=== PATIENT | female | born 1965 | race Caucasian/White ===

== ENCOUNTER 2021-08-30 11:20 | Inpatient (IN) | payer BC, SELFPAY ==
[2021-08-30] VITALS (10 sets, daily range): BP systolic 114–137; BP diastolic 50–82; PULSE 81–106; RESP 12–27; TEMP 36.4–37.1; O2SAT 87–99; BMI 34.7; BMI 29.5
--- NOTE | 2021-08-30 12:56 | EKG12_ITS ---
Test Reason : Blood Pressure : / mmHG Vent. Rate : 081 BPM Atrial Rate : 081 BPM P-R Int : 142 ms QRS Dur : 080 ms QT Int : 392 ms P-R-T Axes : 007 -49 022 degrees QTc Int : 455 ms Normal sinus rhythm Left axis deviation Nonspecific ST abnormality Abnormal ECG Confirmed by PERNELL CAIN, SHIRA ([id number]), proposal editor CHANTAL VEGA ([id number]) on 09/04/2021 10:39:32 AM Referred By: YAMILKA Confirmed By:PATRICIA GIMENEZ MD
--- NOTE | 2021-08-30 12:58 | ED.VIS.DYS ---
HPI History of Present Illness Chief Complaint: Shortness of Breath Narrative Narrative: 56-year-old female presenting with a cough, shortness of breath with exertion, nausea, vomiting, diarrhea x2 weeks. She states she gets tested for COVID-19 twice weekly and has not have a positive Covid result. She was just tested yesterday. Patient try to eat [employer] last night and then vomited. She is having difficulty holding food down. Patient is a smoker but denies history of COPD. She has not had a fever. She does state that her chest feels tight especially when she is walking. She feels short of breath and has to sit down to catch her breath. PFSH PFSH Medical History no medical history Home Medications albuterol sulfate [Ventolin HFA] 1 - 2 puff INHALATION Q4H PRN PRN #8.5 g 08/30/21 [Rx Last Taken Unknown] ondansetron 4 mg PO Q8H PRN PRN #10 tab 08/30/21 [Rx Last Taken Unknown] prednisone 50 mg PO DAILY 5 Days #25 tab 08/30/21 [Rx Last Taken Unknown] Allergy/AdvReac Type Severity Reaction Status Date / Time No Known Allergies Allergy Verified 08/30/21 11:21 Social History Smoking Status: Current every day smoker tobacco type: cigarettes ROS ROS ED Constitutional Constitutional ED: Denies chills or fever(s) Eyes Eyes: Denies blurry vision ENT ENT ED: Reports rhinorrhea; Denies sore throat Cardiovascular Cardiovascular: Reports chest pain and racing heartbeat Respiratory/Chest Respiratory/Chest: Reports cough, dyspnea and dyspnea on exertion Gastrointestinal Gastrointestinal: Reports diarrhea, nausea and vomiting; Denies abdominal pain Genitourinary Genitourinary ED: Denies dysuria or hematuria Musculoskeletal Musculoskeletal: Denies arthralgias or myalgias Integumentary Denies Abrasions or rash Neurologic Neurologic: Denies headache(s) or paresthesias EXAM Physical Exam Const Vital Signs: 08/30/21 11:21 08/30/21 12:04 08/30/21 13:17 Temperature 97.5 F L 97.5 F L Temperature Source Temporal Temporal Pulse Rate 99 86 81 Respiratory Rate 14 26 H 12 Respiratory Effort Short of Breath Respiratory Pattern Normal Blood Pressure 137/82 H 116/73 Blood Pressure Mean 100 87 Pulse Ox 99 94 Oxygen Delivery Method Room Air Room Air 08/30/21 14:58 08/30/21 15:36 Temperature 98 F Temperature Source Temporal Pulse Rate 84 89 Respiratory Rate 22 H 22 H Respiratory Effort Respiratory Pattern Blood Pressure 121/56 H 119/54 L Blood Pressure Mean 77 75 Pulse Ox 97 87 Oxygen Delivery Method Room Air Room Air Positive well nourished General Appearance ED: NAD; Negative for pallor HEENT Reports moist mucous membranes atraumatic Eyes PERRL and EOMs intact bilaterally Neck no lymphadenopathy and supple Resp normal respiratory effort Auscultation: wheezes scattered wheezes Cardio regular rate and regular rhythm GI non-tender and non-distended Palpation: soft Extremity normal to inspection General Extremety ED: Negative for edema or tenderness General Extremity: Negative for edema Neuro oriented x3 and CN's II-XII intact bilaterally Sensorium / Orientation: alert Psych mental status grossly normal Thought Process: normal thought process Skin General Skin Exam: Negative for jaundice or pallor MDM MDM MDM Narrative Medical decision making narrative: Patient presenting with chest tightness and shortness of breath. She was found to be wheezing on examination. She was given breathing treatments and Solu-Medrol. She states she is tested negative for Covid multiple times. CBC shows no leukocytosis. Hemoglobin is actually slightly high at 16.4. Platelets are normal at 330. D-dimer age-adjusted at 0.55 is within normal limits. Renal function electrolytes are normal. LFTs are normal. Troponin is negative. Lactic acid 1.5. Chest x-ray on my interpretation shows no acute cardiopulmonary process and the radiologist does agree. EKG in my interpretation shows a normal sinus rhythm with a ventricular rate of 81 bpm without sign of ischemic change. Patient feeling improved after breathing treatments. Will obtain a delta troponin. Patient reevaluated at 330 in she had oxygen on. I did take this off and after about 5 minutes she she had oxygen desaturation to 85 and 86% on room air. She is placed back on 2 L. I did not test her with a rapid Covid initially because she had multiple Covid's and had been 2 weeks. She initially seemed to be turning around with her oxygen sats. Given the fact that she has hypoxic and had multiple Covid test that were negative I will obtain a PCR. Patient was discussed with the hospitalist for admission with what is likely a COPD exacerbation because her D-dimer is negative. I do not believe she needs CTA of the chest. Patient will be admitted for further treatment. Impression: 1. Acute bronchitis with hypoxia Lab Data Labs: Laboratory Results - last 24 hr 08/30/21 08/30/21 08/30/21 13:20 13:20 13:20 WBC 9.5 RBC 5.71 H Hgb 16.4 H Hct 51.1 H MCV 89.5 MCH 28.7 MCHC 32.1 RDW Std Deviation 42.8 RDW Coeff of Caden 13.1 Plt Count 330 MPV 11.2 Immature Gran % (Auto) 0.300 Neut % (Auto) 64.2 Lymph % (Auto) 27.4 [place] % (Auto) 6.6 Eos % (Auto) 0.9 Baso % (Auto) 0.6 Absolute Neuts (auto) 6.1 Absolute Lymphs (auto) 2.61 Nucleated RBC % 0 D-Dimer Quant (PE/DVT) 0.55 H* Sodium 140 Potassium 4.0 Chloride 102 Carbon Dioxide 31.0 Anion Gap 7 BUN 8 Creatinine 0.70 Estim Creat Clear Calc 83.01 Est GFR (MDRD) Af Amer 111 Est GFR (MDRD) Non-Af 92 BUN/Creatinine Ratio 11.5 Glucose 78 Lactic Acid Calcium 9.2 Total Bilirubin 0.40 AST 23 ALT 35 Alkaline Phosphatase 135 H Troponin I High Sens 6 Total Protein 7.7 Albumin 3.7 Globulin 4.0 Albumin/Globulin Ratio 0.9 08/30/21 13:20 WBC RBC Hgb Hct MCV MCH MCHC RDW Std Deviation RDW Coeff of Caden Plt Count MPV Immature Gran % (Auto) Neut % (Auto) Lymph % (Auto) [place] % (Auto) Eos % (Auto) Baso % (Auto) Absolute Neuts (auto) Absolute Lymphs (auto) Nucleated RBC % D-Dimer Quant (PE/DVT) Sodium Potassium Chloride Carbon Dioxide Anion Gap BUN Creatinine Estim Creat Clear Calc Est GFR (MDRD) Af Amer Est GFR (MDRD) Non-Af BUN/Creatinine Ratio Glucose Lactic Acid 1.5 Calcium Total Bilirubin AST ALT Alkaline Phosphatase Troponin I High Sens Total Protein Albumin Globulin Albumin/Globulin Ratio Radiography Diagnostic Testing: Radiology Impression Chest X-Ray 08/30/21 13:15 IMPRESSION: Chronic interstitial changes, no superimposed acute pulmonary process Electronically Signed: Paul Bermudez MD at 13:50 EDT , Service support , Discharge Plan Triage Chief Complaint: Shortness of Breath ED Provider: Werner Montaño Dx/Rx/DC Orders Instructions: ED Bronchitis with Wheezing (Adult) Prescriptions: New albuterol sulfate [Ventolin HFA] 90 mcg/actuation HFA aerosol inhaler 1 - 2 puff inhalation Q4H PRN PRN (Reason: Wheezing) Qty: 8.5 RF: 0 prednisone 10 mg tablet 50 mg PO DAILY 5 Days Qty: 25 RF: 0 ondansetron 4 mg tablet,disintegrating 4 mg PO Q8H PRN PRN (Reason: Nausea) Qty: 10 RF: 0 Referrals: Curly Coker [Emergency Nurse] - As Needed Disposition Disposition: Home, Self Care
[2021-08-30] MEDS: Albuterol 2.5 MG/3 ML VIAL.NEB. INHALATION ×2 (13:07→16:15)
[2021-08-30] MEDS: Ipratropium/Albuterol Sulfate 3 ML AMPUL.NEB INHALATION ×2 (13:07→19:10)
--- NOTE | 2021-08-30 13:10 | NURSING ---
NO OLD EKGS
[2021-08-30] MEDS: MethylPREDNISolone 125 MG/2 ML Vial IV (13:15)
--- NOTE | 2021-08-30 13:15 | RAD_ITS ---
STUDY: X-RAY CHEST REASON FOR EXAM: Female, 56 years old. Fever and cough TECHNIQUE: Single AP portable view of the chest. COMPARISON: None. FINDINGS: EKG leads overlie the chest There are interstitial changes of the lungs. There is no demonstrated pleural abnormality. Normal size heart. Normal mediastinum and suman. Normal visualized pulmonary arteries. Normal visualized aortic arch and descending thoracic aorta. Normal visualized thoracic spine. Normal visualized ribs, clavicles, and shoulders. There is no demonstrated abnormality of the visualized soft tissue structures of the upper abdomen. RAD/Chest 1 View (Portable) IMPRESSION: Chronic interstitial changes, no superimposed acute pulmonary process Electronically Signed: Paul Bermudez MD at 13:50 EDT , Service support ,
[2021-08-30] MEDS: Ondansetron 4 MG/2 ML Vial IV (13:18)
[2021-08-30 13:31] LABS: Absolute Lymphocyte Count 2.61 X10^3/uL (0.83-4.51); Absolute Neutrophil Count 6.1 X10^3/uL (2.0-7.7); Basophil# 0.06 X10^3/uL; Basophil% 0.6 % (0-1); Eosinophil# 0.09 X10^3/uL; Eosinophils% 0.9 % (0-5); Hematocrit 51.1 % (37-47); Hemoglobin 16.4 g/dL (12.0-15.0); Lymphocyte # 2.61 X10^3/ul (0.83-4.51); Lymphocyte % 27.4 % (19-41); Mean Corp Hgb Conc 32.1 g/dL (32-36); Mean Corpuscular Hgb 28.7 pg (27.0-32.0); Mean Corpuscular Volume 89.5 fL (81-99); Mean Platelet Vol. 11.2 fl (6.2-12.0); Monocyte# 0.63 X10^3/uL; Monocyte% 6.6 % (0-10); NRBC Flagged by Analyzer 0 % (0-5); Neutrophil # 6.11 X10^3/uL (2.7-7.7); Neutrophil % 64.2 % (47-70); Platelet Count 330 K/mm3 (150-450); RBC Distribution Width CV 13.1 % (11.6-14.6); RBC Distribution Width SD 42.8 fl (35.1-43.9); Red Blood Count 5.71 M/mm3 (4.2-5.4); White Blood Count 9.5 K/mm3 (4.4-11.0)
[2021-08-30 13:44] LABS: ALB/GLOB Ratio 0.9 RATIO (0.9-2.4); AST(SGOT) 23 U/L (15-37); Alanine Aminotransfer ALT/SGPT 35 U/L (13-56); Albumin, Serum 3.7 g/dL (3.2-5.0); Alkaline Phosphatase 135 U/L (45-117); Anion Gap 7 (5-15); BUN 8 mg/dL (7-18); BUN/Creat Ratio 11.5 RATIO (10-20); Calcium,Total 9.2 mg/dL (8.5-10.1); Chloride 102 mmol/L (98-107); EST Glomerular Filtration Rate 92 mL/min (>60); Est Glom Filt Rate - Afr Amer 111 mL/min (>60); Estimated Creatinine Clearance 83.01 ml/min; Glucose 78 mg/dL (74-106); Protein, Total 7.7 g/dL (6.4-8.2); Sodium Level 140 mmol/L (136-145); Troponin-I HS 6 pg/mL (3.0-54.0)
[2021-08-30 13:57] LABS: D-Dimer Quantitative (DVT/PE) 0.55 FEU/ug/m (0.27-0.49)
[2021-08-30 14:09] LABS: Lactic Acid 1.5 mmol/L (0.4-1.9)
--- NOTE | 2021-08-30 15:53 | NURSING ---
MED SURG WHITE COPD, HYPOXIC RESP FAILURE
--- NOTE | 2021-08-30 15:57 | HP.PCM.HOS_ITS ---
HPI - General General Date of Admission: 08/30/21 Date of Service: 08/30/21 Chief Complaint: Cough, dyspnea, wheezing. HPI Narrative The patient is a 56 y/o F w/ PMHx: Prolonged Hx Tobacco use 1/2 ppd since teenager otherwise reports being healthy who presents to the [facility] ED on 08/30/21 with history of ongoing 2 weeks of progressively worsening minimally productive cough, wheezing, dyspnea, worse with exertion with no recent fevers or chills and no ill contacts including in her own home. She notes her symptoms worsen when she attempting to be outside in the heat and humidity. She also reports occasional nausea as well as posttussive emesis and has had occasional loose stool. She reports being tested several times outpatient for Covid and has been negative. Patient did receive COVID-19 vaccination specifically the Pfizer series. Work-up in the ED included T 97.5, heart rate 99, BP 137/82, respiratory rate ranging 14-26, 87% on room air with improvement to 96% on 2 L nasal cannula, CBC with WBC 9.5, hemoglobin 16.4, platelet 330 without marked shift, D-dimer 0.55 age equivalent normal, CMP with alk phos 135 otherwise not marked appearing, initial high-sensitivity cardiac troponin 6, repeat pending per ED, EKG with sinus rhythm with no acute evidence of ischemia, chest x-ray with chronic interstitial changes but no superimposed acute cardiopulmonary findings, rapid Covid antigen negative, pending Covid PCR. In the ED patient ministered Zofran, albuterol, DuoNeb therapies as well as Solu-Medrol 125 mg IV x1. PFSH Medical History Obesity (BMI 30.0-34.9) Tobacco use Medical History no medical history Home Medications albuterol sulfate [Ventolin HFA] 1 - 2 puff INHALATION Q4H PRN PRN #8.5 g 08/30/21 [Rx Last Taken Unknown] ondansetron 4 mg PO Q8H PRN PRN #10 tab 08/30/21 [Rx Last Taken Unknown] prednisone 50 mg PO DAILY 5 Days #25 tab 08/30/21 [Rx Last Taken Unknown] Allergy/AdvReac Type Severity Reaction Status Date / Time No Known Allergies Allergy Verified 08/30/21 11:21 Family History (Updated 08/30/21 @ 16:[address] Roxane Deal MD) Mother COPD (chronic obstructive pulmonary disease) other (Patient denies any marked paternal family history including HD, DM, CA.) Surgical History (Updated 08/30/21 @ 16:[address] Roxane Deal MD) No history of previous surgery Social History (Updated 08/30/21 @ 16:[address] Roxane Deal MD) household members: significant other Smoking Status: Current every day smoker tobacco type: cigarettes Smoking packs per day: 0.5 Smoking cigarettes per day: 10.0 how long ago did patient quit smoking: Patient w/ ongoing 1/2 ppd cigarette tobacco use since teen. alcohol intake: current alcohol intake frequency: a few times a month substance use type: does not use ROS ROS Narrative Admission Review of Systems: CONSTITUTIONAL: No weight loss, fever, chills, + weakness or fatigue. HEENT: Eyes: No visual loss, blurred vision, double vision or yellow sclerae. Ears, Nose, Throat: No hearing loss, sneezing, congestion, runny nose or sore throat. SKIN: No rash or itching, lesions, wounds. CARDIOVASCULAR: No chest pain, chest pressure or chest discomfort, palpitations, edema, orthopnea, syncopal events. RESPIRATORY:+ shortness of breath, cough without marked sputum, wheezing, No hemoptysis. GASTROINTESTINAL: + anorexia, nausea/vomiting noted to be posttussive, patient reports occasional loose stool, No abdominal pain, melena, BRBPR. GENITOURINARY: No dysuria, frequency, urgency or retention. NEUROLOGICAL: No headache, dizziness, syncope, paralysis, ataxia, numbness or tingling in the extremities, focal weakness, change in bowel or bladder control, seizure. MUSCULOSKELETAL: No muscle, back pain, joint pain or stiffness. HEMATOLOGIC: No anemia, bleeding or bruising. LYMPHATICS: No enlarged nodes. No history of splenectomy. PSYCHIATRIC: No history of depression or anxiety. ENDOCRINOLOGIC: No reports of sweating, cold or heat intolerance. No polyuria or polydipsia. ALLERGIES: No history of asthma, hives, eczema or rhinitis. Vital Signs Vital Signs Vital Signs: 08/30/21 11:21 08/30/21 12:04 08/30/21 13:17 Temperature 97.5 F L 97.5 F L Temperature Source Temporal Temporal Pulse Rate 99 86 81 Respiratory Rate 14 26 H 12 Respiratory Effort Short of Breath Respiratory Pattern Normal Blood Pressure 137/82 H 116/73 Blood Pressure Mean 100 87 Pulse Ox 99 94 Oxygen Delivery Method Room Air Room Air 08/30/21 14:58 08/30/21 15:36 Temperature 98 F Temperature Source Temporal Pulse Rate 84 89 Respiratory Rate 22 H 22 H Respiratory Effort Respiratory Pattern Blood Pressure 121/56 H 119/54 L Blood Pressure Mean 77 75 Pulse Ox 97 87 Oxygen Delivery Method Room Air Room Air Weight Weight: 214 lb 15.211 oz Body Mass Index (BMI) 34.7 Results Lab / Micro Data Result Diagrams: 08/30/21 13:20 08/30/21 13:20 Labs: Laboratory Results - last 24 hr 08/30/21 13:20: WBC 9.5, RBC 5.71 H, Hgb 16.4 H, Hct 51.1 H, MCV 89.5, MCH 28.7, MCHC 32.1, RDW Std Deviation 42.8, RDW Coeff of Caden 13.1, Plt Count 330, MPV 11.2, Immature Gran % (Auto) 0.300, Neut % (Auto) 64.2, Lymph % (Auto) 27.4, [place] % (Auto) 6.6, Eos % (Auto) 0.9, Baso % (Auto) 0.6, Absolute Neuts (auto) 6.1, Absolute Lymphs (auto) 2.61, Nucleated RBC % 0 08/30/21 13:20: D-Dimer Quant (PE/DVT) 0.55 H* 08/30/21 13:20: Sodium 140, Potassium 4.0, Chloride 102, Carbon Dioxide 31.0, Anion Gap 7, BUN 8, Creatinine 0.70, Estim Creat Clear Calc 83.01, Est GFR (MDRD) Af Amer 111, Est GFR (MDRD) Non-Af 92, BUN/Creatinine Ratio 11.5, Glucose 78, Calcium 9.2, Total Bilirubin 0.40, AST 23, ALT 35, Alkaline Phosphatase 135 H, Troponin I High Sens 6, Total Protein 7.7, Albumin 3.7, Globulin 4.0, Albumin/Globulin Ratio 0.9 08/30/21 13:20: Lactic Acid 1.5 Radiology Impression Chest X-Ray 08/30/21 13:15 IMPRESSION: Chronic interstitial changes, no superimposed acute pulmonary process Electronically Signed: Paul Bermudez MD at 13:50 EDT , Service support , Assessment & Plan Assessment/Plan (1) COPD with acute exacerbation: (2) Hypoxia: PLAN: The patient is a 56 y/o F w/ PMHx: Prolonged Hx Tobacco use 1/2 ppd since teenager otherwise reports being healthy who presents to the [facility] ED on 08/30/21 with history of ongoing 2 weeks of progressively worsening minimally productive cough, wheezing, dyspnea, worse with exertion with no recent fevers or chills and no ill contacts including in her own home. 1. Acute on suspected likely chronic COPD exacerbation w/ Acute Hypoxia; however, Covid PCR is pending as noted above: CXR w/ chronic changes, CBC on admission w/ no marked WC elevation or left shift, afebrile, negative rapid Covid antigen however Covid PCR is pending. Will admit to medical surgical floor, maintain on oxygen with wean as tolerated to room air, continue ATC duonebs, PRN albuterol, IV methylprednisolone with prednisone transition, HOB, IS parameters, awaiting sputum culture as well as procalcitonin and if not marked will defer any antibiotic therapy usage. If COVID PCR does return positive then given hypoxia maintain on precautions as would be considered severe presentation, transition to decadron IV x 10 day course, obtain CRP, CPK, Ferritin, LDH and BNP, continue supportive care including q 2 hour turning including prone given no prone bed availability and judicious hydration. 2. Tobacco Abuse: Encouraged cessation, inpatient consultation per RT, NR if desired. 3. Obesity: Weight loss and lifestyle changes encouraged. 4. DVT prophylaxis: SCDs, Lovenox. Charges/Coding Visit Charges Inpatient E&M: 71995 Init Hosp L3
[2021-08-30 16:15] LABS: Troponin-I HS 6 pg/mL (3.0-54.0)
[2021-08-30 17:04] LABS: Procalcitonin 0.04 ng/mL (0.00-0.09)
[2021-08-30] MEDS: 0.9% Normal Saline 1,000 ML 100 ML IV (18:22)
[2021-08-30] MEDS: Famotidine 20 MG Tablet PO (22:02)
[2021-08-30] MEDS: guaiFENesin 10 ML UDC (200MG/10ML) 20 ML PO (22:02)
[2021-08-30] MEDS: Acetaminophen 325 MG Tablet 650 MG PO (22:02)
--- NOTE | 2021-08-30 22:24 | PCS.PANDOC ---
PANDEMIC DOCUMENTATION INITIATED: Date: 08/30/21 Time: 2
[2021-08-31] VITALS (9 sets, daily range): BP systolic 103–118; BP diastolic 35–64; PULSE 62–102; RESP 16–18; TEMP 36.6–36.8; O2SAT 91–95
[2021-08-31] MEDS: Acetaminophen 325 MG Tablet 650 MG PO ×2 (02:50→20:40)
[2021-08-31 06:13] LABS: Absolute Lymphocyte Count 1.02 X10^3/uL (0.83-4.51); Absolute Neutrophil Count 18.1 X10^3/uL (2.0-7.7); Basophil# 0.03 X10^3/uL; Basophil% 0.2 % (0-1); Hematocrit 45.1 % (37-47); Hemoglobin 14.4 g/dL (12.0-15.0); Lymphocyte # 1.02 X10^3/ul (0.83-4.51); Lymphocyte % 5.2 % (19-41); Mean Corp Hgb Conc 31.9 g/dL (32-36); Mean Corpuscular Hgb 29.1 pg (27.0-32.0); Mean Corpuscular Volume 91.1 fL (81-99); Mean Platelet Vol. 11.3 fl (6.2-12.0); Monocyte# 0.24 X10^3/uL; Monocyte% 1.2 % (0-10); NRBC Flagged by Analyzer 0 % (0-5); Neutrophil % 92.7 % (47-70); Platelet Count 280 K/mm3 (150-450); RBC Distribution Width CV 13.1 % (11.6-14.6); RBC Distribution Width SD 43.9 fl (35.1-43.9); Red Blood Count 4.95 M/mm3 (4.2-5.4); White Blood Count 19.5 K/mm3 (4.4-11.0)
[2021-08-31 06:47] LABS: ALB/GLOB Ratio 0.9 RATIO (0.9-2.4); AST(SGOT) 11 U/L (15-37); Alanine Aminotransfer ALT/SGPT 30 U/L (13-56); Albumin, Serum 3.1 g/dL (3.2-5.0); Alkaline Phosphatase 109 U/L (45-117); Anion Gap 6 (5-15); BUN 14 mg/dL (7-18); BUN/Creat Ratio 19.1 RATIO (10-20); Calcium,Total 9.2 mg/dL (8.5-10.1); Chloride 102 mmol/L (98-107); Creatinine, Serum 0.73 mg/dL (0.55-1.02); EST Glomerular Filtration Rate 87 mL/min (>60); Est Glom Filt Rate - Afr Amer 105 mL/min (>60); Globulin 3.6 g/dL (2.2-4.2); Glucose 143 mg/dL (74-106); Potassium 4.8 mmol/L (3.5-5.1); Protein, Total 6.7 g/dL (6.4-8.2); Sodium Level 137 mmol/L (136-145)
[2021-08-31] MEDS: guaiFENesin 10 ML UDC (200MG/10ML) 20 ML PO ×3 (06:48→20:40)
[2021-08-31] MEDS: Ipratropium/Albuterol Sulfate 3 ML AMPUL.NEB INHALATION ×4 (06:53→19:08)
--- NOTE | 2021-08-31 07:19 | PCM.PN.HOSP ---
Subjective Subjective Patient is short of breath. Has history of smoking since teenage about a pack per day and stopped just before coming to ER. 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 Denies any chronic heart disease or NH. Never had PFT. Her mother also has COPD from smoking very advanced as per the patient Objective Data Objective Data Vital Signs: Vital Signs Temp Pulse Resp BP Pulse Ox 97.9 F 81 18 117/64 95 08/31/21 02:41 08/31/21 02:41 08/31/21 02:41 08/31/21 02:41 08/31/21 02:41 Oxygen Flow Rate (L/min) 3 Oxygen Delivery Method Nasal Cannula Weight: 182 lb 12.211 oz Body Mass Index (BMI) 29.5 Intake & Output: Intake and Output for Last 24 Hours 08/29/21 08/30/21 08/31/21 23:59 23:59 23:59 Intake Total 1200 / 1200 Balance 1200 / 1200 Lab / Micro Data Result Diagrams: 08/31/21 05:16 08/31/21 05:16 Labs: Laboratory Results - last 24 hr 08/30/21 13:20: WBC 9.5, RBC 5.71 H, Hgb 16.4 H, Hct 51.1 H, MCV 89.5, MCH 28.7, MCHC 32.1, RDW Std Deviation 42.8, RDW Coeff of Caden 13.1, Plt Count 330, MPV 11.2, Immature Gran % (Auto) 0.300, Neut % (Auto) 64.2, Lymph % (Auto) 27.4, Josephine % (Auto) 6.6, Eos % (Auto) 0.9, Baso % (Auto) 0.6, Absolute Neuts (auto) 6.1, Absolute Lymphs (auto) 2.61, Nucleated RBC % 0 08/30/21 13:20: D-Dimer Quant (PE/DVT) 0.55 H* 08/30/21 13:20: Sodium 140, Potassium 4.0, Chloride 102, Carbon Dioxide 31.0, Anion Gap 7, BUN 8, Creatinine 0.70, Estim Creat Clear Calc 83.01, Est GFR (MDRD) Af Amer 111, Est GFR (MDRD) Non-Af 92, BUN/Creatinine Ratio 11.5, Glucose 78, Calcium 9.2, Total Bilirubin 0.40, AST 23, ALT 35, Alkaline Phosphatase 135 H, Troponin I High Sens 6, Total Protein 7.7, Albumin 3.7, Globulin 4.0, Albumin/Globulin Ratio 0.9 08/30/21 13:20: Lactic Acid 1.5 08/30/21 13:20: Procalcitonin 0.04 08/30/21 15:49: Troponin I High Sens 6 08/30/21 16:10: COVID-19 (POOJA) Not Detected 08/31/21 05:16: WBC 19.5 H, RBC 4.95, Hgb 14.4, Hct 45.1, MCV 91.1, MCH 29.1, MCHC 31.9 L, RDW Std Deviation 43.9, RDW Coeff of Caden 13.1, Plt Count 280, MPV 11.3, Immature Gran % (Auto) 0.700, Neut % (Auto) 92.7 H, Lymph % (Auto) 5.2 L, Josephine % (Auto) 1.2, Eos % (Auto) 0.0, Baso % (Auto) 0.2, Absolute Neuts (auto) 18.1 H, Absolute Lymphs (auto) 1.02, Nucleated RBC % 0 08/31/21 05:16: Sodium 137, Potassium 4.8, Chloride 102, Carbon Dioxide 29.0, Anion Gap 6, BUN 14, Creatinine 0.73, Estim Creat Clear Calc 79.60, Est GFR (MDRD) Af Amer 105, Est GFR (MDRD) Non-Af 87, BUN/Creatinine Ratio 19.1, Glucose 143 H, Calcium 9.2, Total Bilirubin 0.30, AST 11 L, ALT 30, Alkaline Phosphatase 109, Total Protein 6.7, Albumin 3.1 L, Globulin 3.6, Albumin/Globulin Ratio 0.9 Micro: Microbiology 08/30/21 16:10 Mucosa - Nose Respiratory Panel (PCR) - Final Rhinovirus Radiography Diagnostic Testing: Radiology Impression Chest X-Ray 08/30/21 13:15 IMPRESSION: Chronic interstitial changes, no superimposed acute pulmonary process Electronically Signed: Paul Bermudez MD at 13:50 EDT , Service support , Physical Exam Narrative General: Alert, Oriented x3, Cooperative HEENT: Atraumatic, PERRLA, EOMI, Normocephalic Oral: No Gingival or Mucosal Lesions/ Ulcerations Neck: Supple, No JVD, Negative Carotid Bruits Lungs: Air entry very diminished in both lungs. Bilateral rhonchi and wheezing. Dyspnea on mild exertion. Cardiovascular: Regular rate, Regular Rhythm, Normal S1, Normal S2, No murmurs Abdomen: Bowel Sounds Present, Soft, Non Tender, Non-Distended : No renal angle tenderness. No suprapubic tenderness. Extremities: No edema, Capillary Refill Less than 3 Seconds Skin: No rashes, No breakdown Musculoskeletal: No Tenderness to Palpation of Joints or Extremities Neurological: Cranial nerves II-XII grossly intact, DTR 2+/4 and Symmetrical, Neuro grossly intact Psych/Mental Status: Normal Affect, Appropriate. Assessment & Plan Assessment/Plan (1) COPD with acute exacerbation: (2) Hypoxia: PLAN: The patient is a 56 y/o F w/ PMHx: Prolonged Hx Tobacco use 1/2 ppd since teenager otherwise reports being healthy who presents to the [facility] ED on 08/30/21 with history of ongoing 2 weeks of progressively worsening minimally productive cough, wheezing, dyspnea, worse with exertion with no recent fevers or chills and no ill contacts including in her own home. 1. COPD exacerbation with mild hypoxia probably due to rhinovirus with possible bacterial superinfection, bronchitis: This is her first COPD exacerbation with hypoxia. Mild leukocytosis probably from steroid. 19 rapid antigen and RT PCR negative. On bronchodilator, IV Solu-Medrol, incentive spirometry and Pep. On Mucinex. Respiratory panel positive of rhinovirus. Preliminary stain of sputum culture shows 1+ white cells, 4+ gram-positive cocci. Leukocytosis with left shift, 4+ gram-positive cocci in the sputum patient is started on doxycycline which has anti-inflammatory effect too. Chest x-ray negative for pneumonia. Patient was advised to follow-up in pulmonary clinic with PFT, will need a scheduled inhaler. Home qualification oxygen test before discharge 2. Tobacco Abuse: Encouraged cessation, on nicotine patch. 3. Obesity: Weight loss and lifestyle changes encouraged. 4. DVT prophylaxis: SCDs, Lovenox. Clinical Impression(s) from Imaging Studies Chest X-Ray 08/30/21 13:15 IMPRESSION: Chronic interstitial changes, no superimposed acute pulmonary process Charges/Coding Visit Charges Inpatient E&M: 69113 Subs Hosp L2
[2021-08-31] MEDS: Enoxaparin 40 MG/0.4 ML Syringe SC (09:42)
[2021-08-31] MEDS: Famotidine 20 MG Tablet PO ×2 (09:42→20:40)
--- NOTE | 2021-08-31 12:20 | CASEMGMT ---
ANA OATES Assessment: Face to Face with pt for initial transition planning/care coordination assessment. ANA OATES introduced self and role at [facility] [place], pt voices understanding and consents to assessment. Pt is A/O x4 and answers all questions appropriately at this time. Pt sitting up in chair eating lunch with O2 on in no distress. Care providers, pharmacy, and demographics verified/updated. Admitting Dx: Acute COPD exac, hypoxia PCP: Alexandru- patient is scheduled to see him at the end of this month. Specialists: Pt denies. Preferred Pharmacy: [facility] [place] Retail Insurance: [place] Prescription Benefit: yes LW/HPOA: Pt denies having a LW/DPOA and denies need for info regarding AD. LNOK: Anuj Salgado, sig other Living Arrangements: Pt lives with sig other in a mobile home with 4 steps to enter with a rail. Pt reports she is I in ADL's and denies concerns at home. Transportation: Pt drives self and denies concerns with transportation. DME/HHC/SNF: Pt denies having any DME, previous HHC or SNF stays. 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 She drinks alcohol occasionally and smokes 1/2 pack of cigarettes per day. Pt denies using street drugs or illegal drugs. Pt states should she need a nebulizer or O2 upon dc she has no preference of DME company. Provided pt with a list of local in network DME companies. Pt states no concerns with going home at time of dc. Pt states no further concerns/needs. CM to follow. Advised pt to ask CM if any further question/concerns/needs arise, voices understanding. Pt Goal: Home Plan: Home
[2021-08-31] MEDS: 0.9% Saline Lock 10 ML Syringe IV (13:54)
--- NOTE | 2021-08-31 14:59 | CHAPLAIN ---
Type of Pastoral Visit _x__ Initial Visit ___ Follow-up Visit ___ On-call Visit ___ General Patient Visit ___ Spiritual Assessment ___ Family Conference ___ Bereavement ___ Rapid Response ___ Code Blue ___ Other (describe below) Pastoral Care Referral From _x__ Patient ___ Family ___ Nurse ___ Physician ___ Automatic Pattern Edger ___ Compliance Director ___ Other (describe below) Sacrament/Intervention _x__ Active listening ___ Anointing ___ Latter-Day ___ Bereavement ___ Communion ___ Cami exploration ___ ___ Life review ___ Prayer ___ Reconciliation ___ Sacrament of Sick ___ Supportive presence ___ Wedding ___ Other (describe below) Pastoral Comments
[2021-08-31] MEDS: Doxycycline 100 MG CAPSULE PO ×2 (16:12→20:40)
[2021-09-01] VITALS (9 sets, daily range): BP systolic 102–131; BP diastolic 57–71; PULSE 67–96; RESP 18–20; TEMP 36.6–36.8; O2SAT 87–94
[2021-09-01] MEDS: Ipratropium/Albuterol Sulfate 3 ML AMPUL.NEB INHALATION (07:13)
--- NOTE | 2021-09-01 09:30 | PCM.DC ---
Discharge Instructions Diet Discharge Diet: No restrictions Activity Discharge Activity: Return to Normal Activity Return to work on:: 09/11/21 Dressing / Incision Call your doctor if you observe: Fever of 101 or Higher and Shortness of breath Follow Up Care Test Results: Test results from this visit will be discussed in further detail at your follow-up appointment, if applicable. Discharge Plan Admission Admit Date/Time: 08/30/21 15:57 Primary Reason for Your Visit: acute bronchitis Attending Provider: Braydon Swain Primary Care Provider: Care Physician,No Primary Instructions Patient Instructions: ED Bronchitis with Wheezing (Adult) Discharge Orders/Prescriptions Prescriptions: New doxycycline monohydrate 100 mg Capsule 100 mg PO BID Qty: 8 RF: 0 albuterol sulfate 90 mcg/actuation HFA aerosol inhaler 2 puff inhalation Q6H PRN (Reason: shortness of breath or wheezing) Qty: 6.7 RF: 0 prednisone 20 mg tablet 40 mg PO DAILY 5 Days Qty: 10 RF: 0 Referrals / Follow Up: Curly Coker [Emergency Nurse] - As Needed Srinath Choudhary DO [STAFF PHYSICIAN] - Within 1 Month (Asthma evaluation) Care Physician,No Primary [Primary Care Provider] - Disposition Disposition (needs filled in before D/C Order can be placed): Home, Self Care
--- NOTE | 2021-09-01 09:35 | PCM.DC.SUM ---
Providers Date of Admission: 08/30/21 Primary Care Physician: Gabriella Primary Care Phys Reason For Visit: ACUTE COPD EXACERBATION, HYPOXIA Diagnosis Discharge Diagnosis (1) Hypoxia: Status: Acute Code(s): R09.02 - Hypoxemia (2) Acute bronchitis: Status: Acute Code(s): J20.9 - Acute bronchitis, unspecified Medications at Discharge Home Medications albuterol sulfate 2 puff INHALATION Q6H PRN #6.7 g 09/01/21 doxycycline monohydrate 100 mg PO BID #8 cap 09/01/21 prednisone 40 mg PO DAILY 5 Days #10 tab 09/01/21 Hospital Course Operations None Procedures None Summary of Care Provided Minutes Spent on Discharge: 28 Hospital Course: This is a 56-year-old female presents with shortness of breath. Patient been short of breath for 2 weeks previous. Presented to the emergency room where she was 87% on room air patient 2 L nasal cannula was 96%. Patient was started on methylprednisolone as well as bronchodilators. Patient was also added on doxycycline. Patient did have viral panel that was positive for rhinovirus. Patient does have an extensive smoking history. Concern was that patient has an exacerbation of COPD but has never been fully evaluated for COPD to determine. Patient has a bronchitis due to rhinovirus but would recommend patient follow-up pulmonology for formal PFTs to determine if patient has asthma or COPD. Patient is feeling better and will check an ambulatory pulse ox prior to discharge. Weight / BMI Weight Weight: 84.55 kg Body Mass Index (BMI) 29.5 ABG / Lab / Microbiology Data Result Diagrams: 08/31/21 05:16 08/31/21 05:16 Microbiology: Microbiology 08/31/21 09:40 Sputum, Expectorated/Coughed Gram Stain - Final 08/30/21 16:10 Mucosa - Nose Respiratory Panel (PCR) - Final Rhinovirus D/C Instructions Discharge Diet: No restrictions Return to work on: 09/11/21 Call your doctor if you observe: Fever of 101 or Higher and Shortness of breath Meaningful Use Info Meaningful Use Diagnoses (Choose all that apply): None applicable Discharge Plan Admission Admit Date/Time: 08/30/21 15:57 Primary Reason for Your Visit: acute bronchitis Attending Provider: Braydon Swain Primary Care Provider: Care Physician,No Primary Instructions Patient Instructions: ED Bronchitis with Wheezing (Adult) Discharge Orders/Prescriptions Prescriptions: New doxycycline monohydrate 100 mg Capsule 100 mg PO BID Qty: 8 RF: 0 albuterol sulfate 90 mcg/actuation HFA aerosol inhaler 2 puff inhalation Q6H PRN (Reason: shortness of breath or wheezing) Qty: 6.7 RF: 0 prednisone 20 mg tablet 40 mg PO DAILY 5 Days Qty: 10 RF: 0 Referrals / Follow Up: Curly Coker [Emergency Nurse] - As Needed Srinath Choudhary DO [STAFF PHYSICIAN] - Within 1 Month (Asthma evaluation) Care Physician,No Primary [Primary Care Provider] - Disposition Disposition (needs filled in before D/C Order can be placed): Home, Self Care Charges/Coding Visit Charges Inpatient E&M: 80993 Disch Hosp
[2021-09-01] MEDS: Famotidine 20 MG Tablet PO (10:46)
[2021-09-01] MEDS: Doxycycline 100 MG CAPSULE PO (10:46)
[2021-09-01] MEDS: Enoxaparin 40 MG/0.4 ML Syringe SC (10:46)
--- NOTE | 2021-09-01 11:18 | CASEMGMT ---
Pt qualifies for home O2, faxed referral to [facility] [place] and made tc to Brett to make aware of referral and that portable tank was taken from stock.
[2021-09-01] MEDS: 0.9% Saline Lock 10 ML Syringe IV (13:06)
== END 2021-09-01 15:00 | disposition home or self-care (01) | DRG 203 ==
LOC: ED 14:05 → MS3 16:28
PROVIDERS: Admitting Provider Family Medicine; Emergency Provider Student in an Organized Health Care Education/Training Program
DX: J20.9 Acute bronchitis, unspecified (principal); B97.89 Other viral agents as the cause of diseases classified elsewhere; R09.02 Hypoxemia; E66.9 Obesity, unspecified; F17.210 Nicotine dependence, cigarettes, uncomplicated; Z82.5 Family history of asthma and other chronic lower respiratory diseases; Z68.34 Body mass index [BMI] 34.0-34.9, adult
CPT/HCPCS: 36415; 71045; 80053; 83605; 84145; 84484; 85025; 85379; 87040; 87070; 87205; 87633; 87635; 93005; 94640; 94762; 99251; 99285; 99406; J7030; U0005; A4216; G0463; J2405; U0003

== ENCOUNTER → 2021-09-15 15:31 | Outpatient (CLI) | payer BC, SELFPAY ==
[2021-09-15 17:34] LABS: Absolute Lymphocyte Count 3.32 X10^3/uL (0.83-4.51); Absolute Neutrophil Count 10.3 X10^3/uL (2.0-7.7); Basophil# 0.08 X10^3/uL; Basophil% 0.5 % (0-1); Eosinophils% 0.7 % (0-5); Hematocrit 47.8 % (37-47); Hemoglobin 15.3 g/dL (12.0-15.0); Lymphocyte # 3.32 X10^3/ul (0.83-4.51); Lymphocyte % 22.3 % (19-41); Mean Corpuscular Hgb 28.6 pg (27.0-32.0); Mean Corpuscular Volume 89.3 fL (81-99); Mean Platelet Vol. 11.1 fl (6.2-12.0); Monocyte# 1.07 X10^3/uL; Monocyte% 7.2 % (0-10); NRBC Flagged by Analyzer 0 % (0-5); Neutrophil # 10.31 X10^3/uL (2.7-7.7); Platelet Count 349 K/mm3 (150-450); RBC Distribution Width CV 12.8 % (11.6-14.6); Red Blood Count 5.35 M/mm3 (4.2-5.4); White Blood Count 14.9 K/mm3 (4.4-11.0)
[2021-09-15 17:58] LABS: Ferritin 183 ng/mL (8-252); Iron 96 ug/dL (50-170); Iron Binding Capacity,Total 302 ug/dL (250-450)
[2021-09-17 13:30] LABS: Alpha Antitrypsin Serum 176 mg/dL (101-187); Transferrin 249 mg/dL (192-364)
== END ==
LOC: MFPLAB 15:36
PROVIDERS: PCP Family Medicine; Referring Provider Family Medicine; Visit Provider Family Medicine
DX: D75.1 Secondary polycythemia (principal)
CPT/HCPCS: 36415; 82103; 82104; 82728; 83540; 83550; 84466; 85025

== ENCOUNTER → 2021-09-19 15:02 | Outpatient (CLI) | payer BC, SELFPAY ==
[2021-09-25 16:08] LABS: Alpha Antitrypsin Serum 154 mg/dL (101-187)
== END ==
LOC: MFPLAB 15:03
PROVIDERS: PCP Family Medicine; Referring Provider Family Medicine; Visit Provider Family Medicine
DX: J44.9 Chronic obstructive pulmonary disease, unspecified (principal)
CPT/HCPCS: 36415; 82103; 82104

== ENCOUNTER 2021-11-30 10:17 | Outpatient (CLI) | payer BC, SELFPAY ==
[2021-11-30 11:55] LABS: Absolute Lymphocyte Count 3.69 X10^3/uL (0.83-4.51); Absolute Neutrophil Count 7.5 X10^3/uL (2.0-7.7); Basophil# 0.06 X10^3/uL; Basophil% 0.5 % (0-1); Eosinophil# 0.13 X10^3/uL; Eosinophils% 1.1 % (0-5); Hematocrit 47.6 % (37-47); Hemoglobin 15.3 g/dL (12.0-15.0); Lymphocyte # 3.69 X10^3/ul (0.83-4.51); Lymphocyte % 30.1 % (19-41); Mean Corp Hgb Conc 32.1 g/dL (32-36); Mean Corpuscular Hgb 28.2 pg (27.0-32.0); Mean Corpuscular Volume 87.8 fL (81-99); Mean Platelet Vol. 11.2 fl (6.2-12.0); Monocyte# 0.85 X10^3/uL; Monocyte% 6.9 % (0-10); NRBC Flagged by Analyzer 0 % (0-5); Neutrophil # 7.47 X10^3/uL (2.7-7.7); Platelet Count 310 K/mm3 (150-450); RBC Distribution Width CV 13.5 % (11.6-14.6); Red Blood Count 5.42 M/mm3 (4.2-5.4); White Blood Count 12.3 K/mm3 (4.4-11.0)
== END 2021-11-30 23:59 | disposition short-term general hospital (02) ==
LOC: MFPLAB 10:20
PROVIDERS: PCP Family Medicine; Referring Provider Family Medicine; Visit Provider Family Medicine
DX: D75.1 Secondary polycythemia (principal)
CPT/HCPCS: 36415; 85025

== ENCOUNTER 2022-03-09 11:38 | Outpatient (CLI) | payer BC, SELFPAY ==
--- NOTE | 2022-03-09 11:40 | RAD_ITS ---
STUDY: XR Chest 2 Views 03/09/2022 11:48 AM REASON FOR EXAM: Female, 56 years old. CHEST PAIN COPD COMPARISON: None TECHNIQUE: XR Chest 2 Views FINDINGS: There is no demonstrated pleural abnormality. Normal heart size. Normal mediastinum. Normal suman. Prominent appearing increased interstitial lung markings. Normal visualized pulmonary arteries. There is atherosclerotic calcification of the aortic arch with tortuosity. There are diffuse degenerative changes of the visualized thoracic spine. There is degenerative osteoarthritis of the bilateral shoulders. There is no demonstrated abnormality of the visualized soft tissue structures of the upper abdomen. RAD/Chest PA and Lateral IMPRESSION: There are no acute findings. Electronically Signed: Jeromy Salmon MD at 17:01 EDT ,
== END 2022-03-09 23:59 | disposition home or self-care (01) ==
LOC: MTRAD 11:39
PROVIDERS: PCP Family Medicine; Referring Provider Family Medicine; Visit Provider Family Medicine
DX: J44.1 Chronic obstructive pulmonary disease with (acute) exacerbation (principal)
CPT/HCPCS: 71046

== ENCOUNTER 2022-07-21 17:23 | Emergency (ER) | payer BC, SELFPAY ==
[2022-07-21 17:24] VITALS: BP 146/67; PULSE 117; RESP 22; TEMP 36.4; O2SAT 96; BMI 29.0
--- NOTE | 2022-07-21 18:34 | RAD_ITS ---
STUDY: X-RAY - LEFT TIBIA AND FIBULA REASON FOR EXAM: Female, 56 years old. pain and swelling TECHNIQUE: 2 view(s) of the tibia and fibula were obtained. COMPARISON: None. FINDINGS: Normal visualized tibia. Normal visualized fibula. The soft tissue structures are unremarkable. RAD/Tibia & Fibula 2 Views IMPRESSION: Normal x-ray examination of the tibia and fibula. Electronically Signed: Carlos Fitzgerald MD (Brooks) at 19:01 EDT ,
--- NOTE | 2022-07-21 18:47 | EDS_ITS ---
HPI History of Present Illness Chief Complaint: Lower Extremity Injury Informant: patient Narrative Narrative: Patient complains of left calf soreness for about 2 days. She does not think she injured this. She has no history of travel surgery immobilization personal family history of DVT or PE. The leg is not numb or weak. It is not the knee or ankle. It is primarily the calf. She feels it slightly swollen and tight. It is worse with weightbearing. No chest pain or trouble breathing. Patient states she has had this before but it usually goes away within about a day. It does not sound like she is ever had it evaluated. Patient has no chronic medical conditions Patient takes no medications Patient has no allergies No recent surgeries PFSH PFSH Medical History Obesity (BMI 30.0-34.9) Tobacco use Medical History no medical history no medical history Home Medications albuterol sulfate 90 mcg/actuation aerosol inhaler 2 puff inhalation Q6H PRN shortness of breath or wheezing #6.7 grams 09/01/21 [Rx Last Taken Unknown] doxycycline monohydrate 100 mg capsule 100 mg PO BID #8 caps 09/01/21 [Rx Last Taken Unknown] prednisone 20 mg tablet 40 mg PO DAILY 5 days #10 tabs 09/01/21 [Rx Last Taken Unknown] ondansetron 4 mg disintegrating tablet 4 mg PO Q8H PRN nausea and vomiting #10 tabs 07/21/22 [Rx Last Taken Unknown] oxycodone-acetaminophen 5 mg-325 mg tablet (Percocet) 1 tab PO Q6H PRN pain 3 days #10 tabs 07/21/22 [Rx Last Taken Unknown] Allergy/AdvReac Type Severity Reaction Status Date / Time No Known Allergies Allergy Verified 07/21/22 17:25 Family History Mother COPD (chronic obstructive pulmonary disease) Surgical History No history of previous surgery Social History household members: significant other Smoking Status: Current every day smoker tobacco type: cigarettes how long ago did patient quit smoking: Patient w/ ongoing 1/2 ppd cigarette tobacco use since teen. alcohol intake: current alcohol intake frequency: a few times a month substance use type: does not use ROS ROS ED Constitutional Constitutional ED: Denies chills, fever(s) or sweats Eyes Eyes: Denies blurry vision ENT ENT ED: Denies rhinorrhea or sore throat Cardiovascular Cardiovascular: Denies chest pain, orthopnea, palpitations or paroxysmal nocturnal dyspnea Respiratory/Chest Respiratory/Chest: Denies cough, dyspnea, dyspnea on exertion, orthopnea, paroxysmal nocturnal dyspnea or sputum Gastrointestinal Gastrointestinal: Denies nausea or vomiting Musculoskeletal Musculoskeletal: Reports myalgias and other Details: See history of present illness ; Denies neck pain Integumentary Denies abscess, Abrasions or rash Neurologic Neurologic: Denies paresthesias or weakness Endocrine Endocrinology: Denies polydipsia or polyuria Hematologic/Lymphatic Hematologic/Lymphatic: Denies lymphadenopathy Allergic/Immunologic Allergic/Immunologic ED: Denies urticaria EXAM Physical Exam Const Vital Signs: 07/21/22 17:24 07/21/22 19:31 Temperature 97.6 F L Temperature Source Temporal Pulse Rate 117 H 70 Respiratory Rate 22 H 18 Blood Pressure 146/67 H 106/50 L Blood Pressure Mean 93 68 Pulse Ox 96 97 Oxygen Delivery Method Room Air Room Air Positive well nourished and well developed General Appearance ED: well developed and NAD HEENT Reports moist mucous membranes Neck full ROM Chest Wall inspection of chest normal and palpation of chest normal Resp normal respiratory effort and clear to auscultation bilaterally Resp Narrative: No pain with a deep breath Auscultation: Negative for rales, rhonchi or wheezes Cardio regular rate, regular rhythm and S1 normal heart sound Cardio Narrative: Patient has a heart rate about 90 at this time. GI non-tender and non-distended Back/Spine no CVA tenderness Extremity normal to inspection Extremity Narrative: Although the leg does not look swollen, her left calf does measure about 1-1 and half centimeters larger than her right 10 cm below the tibial tuberosity. There is mild diffuse soreness but no focal tenderness. I do not feel a cord. Distal pulses are excellent both dorsalis pedis and posterior tibial. Distal foot has normal coloration and capillary refill. Neuro oriented x3 Psych mental status grossly normal Skin no wounds Lesions: no lesions Rashes: no rashes MDM MDM MDM Narrative Medical decision making narrative: We are not able to get an ultrasound here today. I did do x-rays that were negative. CBC shows slight elevation of white count and hemoglobin which are nonspecific. Platelets are normal. Renal function is normal. D-dimer was high. With her symptoms, elevated D-dimer I will treat her with a dose of Lovenox. We will write for outpatient ultrasound. I explained this needs to be done tomorrow. If she cannot get it done tomorrow in the morning she should come back to the ER so we can do it. If she develops chest pain shortness of breath or any other symptoms in the meantime she should return. She may still be referred back here after ultrasound tomorrow if her test is positive for definitive treatment. Lab Data Attestation: I reviewed the patient's lab results. Labs: Laboratory Results - last 24 hr 07/21/22 07/21/22 07/21/22 19:06 19:06 19:06 WBC 15.1 H RBC 5.25 Hgb 16.9 H Hct 50.0 H MCV 95.2 MCH 32.2 H MCHC 33.8 RDW Std Deviation 55.2 H RDW Coeff of Caden 15.7 H Plt Count 284 MPV 10.4 Immature Gran % (Auto) 0.400 Neut % (Auto) 72.1 H Lymph % (Auto) 17.0 L Duval % (Auto) 8.8 Eos % (Auto) 1.2 Baso % (Auto) 0.5 Absolute Neuts (auto) 10.9 H Absolute Lymphs (auto) 2.56 Nucleated RBC % 0 D-Dimer Quant (PE/DVT) 2.26 H* Sodium 139 Potassium 4.0 Chloride 103 Carbon Dioxide 31.0 Anion Gap 5 BUN 11 Creatinine 0.66 Estim Creat Clear Calc 88.04 Est GFR (MDRD) Af Amer 117 Est GFR (MDRD) Non-Af 97 BUN/Creatinine Ratio 16.5 Glucose 98 Calcium 8.9 Radiography Diagnostic Testing: Clinical Impression(s) from Imaging Studies Tibia/Fibula X-Ray 07/21/22 18:34 IMPRESSION: Normal x-ray examination of the tibia and fibula. Electronically Signed: Carlos Fitzgerald MD ([place]) at 19:01 EDT , Discharge Plan Triage Chief Complaint: Lower Extremity Injury ED Provider: Syed Barnard Dx/Rx/DC Orders Clinical Impression: Pain of left calf, D-dimer, elevated Instructions: ED Deep Vein Thrombosis (DVT) Prescriptions: New ondansetron 4 mg tablet,disintegrating 4 mg PO Q8H PRN (Reason: nausea and vomiting) Qty: 10 0RF oxycodone-acetaminophen [Percocet] 5-325 mg tablet 1 tab PO Q6H PRN (Reason: pain) 3 Days Qty: 10 0RF No Action doxycycline monohydrate 100 mg Capsule 100 mg PO BID Qty: 8 0RF albuterol sulfate 90 mcg/actuation HFA aerosol inhaler 2 puff inhalation Q6H PRN (Reason: shortness of breath or wheezing) Qty: 6.7 0RF prednisone 20 mg tablet 40 mg PO DAILY 5 Days Qty: 10 0RF Other Ambulatory Orders: Venous Duplex US, Unilateral (Stat) Facility: [facility] - Location: [facility] Ordered By: Dr. Syed Barnard Primary Care Provider: Jaxon Horvath Referrals: Jaxon Horvath MD [Primary Care Provider] - As soon as possible Disposition Disposition: Home, Self Care
[2022-07-21 19:20] LABS: Absolute Lymphocyte Count 2.56 X10^3/uL (0.83-4.51); Absolute Neutrophil Count 10.9 X10^3/uL (2.0-7.7); Basophil# 0.08 X10^3/uL; Basophil% 0.5 % (0-1); Eosinophil# 0.18 X10^3/uL; Eosinophils% 1.2 % (0-5); Hemoglobin 16.9 g/dL (12.0-15.0); Lymphocyte # 2.56 X10^3/ul (0.83-4.51); Mean Corp Hgb Conc 33.8 g/dL (32-36); Mean Corpuscular Hgb 32.2 pg (27.0-32.0); Mean Corpuscular Volume 95.2 fL (81-99); Mean Platelet Vol. 10.4 fl (6.2-12.0); Monocyte# 1.32 X10^3/uL; Monocyte% 8.8 % (0-10); NRBC Flagged by Analyzer 0 % (0-5); Neutrophil # 10.87 X10^3/uL (2.7-7.7); Neutrophil % 72.1 % (47-70); Platelet Count 284 K/mm3 (150-450); RBC Distribution Width CV 15.7 % (11.6-14.6); RBC Distribution Width SD 55.2 fl (35.1-43.9); Red Blood Count 5.25 M/mm3 (4.2-5.4); White Blood Count 15.1 K/mm3 (4.4-11.0)
[2022-07-21 19:31] VITALS: BP 106/50; PULSE 70; RESP 18; O2SAT 97
[2022-07-21 19:49] LABS: D-Dimer Quantitative (DVT/PE) 2.26 FEU/ug/m (0.27-0.49)
[2022-07-21 19:55] LABS: Anion Gap 5 (5-15); BUN 11 mg/dL (7-18); BUN/Creat Ratio 16.5 RATIO (10-20); Calcium,Total 8.9 mg/dL (8.5-10.1); Chloride 103 mmol/L (98-107); Creatinine, Serum 0.66 mg/dL (0.55-1.02); EST Glomerular Filtration Rate 97 mL/min (>60); Est Glom Filt Rate - Afr Amer 117 mL/min (>60); Estimated Creatinine Clearance 88.04 ml/min; Glucose 98 mg/dL (74-106); Sodium Level 139 mmol/L (136-145)
[2022-07-21] MEDS: Enoxaparin 80 MG/0.8 ML Syringe SC (21:11)
[2022-07-21] MEDS: oxyCODONE 5 MG Tablet PO (21:11)
[2022-07-21 21:14] VITALS: BP 125/59; PULSE 90; RESP 18; O2SAT 97
== END 2022-07-21 21:23 | disposition home or self-care (01) ==
PROVIDERS: Emergency Provider Emergency Medicine; PCP Family Medicine; Visit Provider Emergency Medicine
DX: M79.662 Pain in left lower leg (principal); F17.210 Nicotine dependence, cigarettes, uncomplicated; R79.89 Other specified abnormal findings of blood chemistry
CPT/HCPCS: 73590; 80048; 85025; 85379; 96372; 99282

== ENCOUNTER 2022-07-22 11:21 | Emergency (ER) | payer BC, SELFPAY ==
[2022-07-22 11:21] VITALS: BP 122/68; PULSE 97; RESP 18; TEMP 36.6; O2SAT 95; BMI 29.0
--- NOTE | 2022-07-22 11:44 | ED.VIS.LOWEX ---
HPI History of Present Illness Chief Complaint: Lower Extremity Injury Narrative Narrative: 57-year-old female past medical history of COPD presents with her fianc? because of positive DVT study performed as an outpatient. She states over the last 2 to 3 days she has had left calf pain and behind the knee pain. She denies any recent periods of immobility. No trauma to her leg. She denies any pain or shortness of breath. She was seen in the emergency department last evening where she had an outpatient ultrasound scheduled for today. She was sent to the emergency department because it was reported to be positive. PFSH PFSH Medical History Obesity (BMI 30.0-34.9) Tobacco use Home Medications albuterol sulfate 90 mcg/actuation aerosol inhaler 2 puff inhalation Q6H PRN shortness of breath or wheezing #6.7 grams 09/01/21 [Rx Last Taken Unknown] doxycycline monohydrate 100 mg capsule 100 mg PO BID #8 caps 09/01/21 [Rx Last Taken Unknown] prednisone 20 mg tablet 40 mg PO DAILY 5 days #10 tabs 09/01/21 [Rx Last Taken Unknown] ondansetron 4 mg disintegrating tablet 4 mg PO Q8H PRN nausea and vomiting #10 tabs 07/21/22 [Rx Last Taken Unknown] oxycodone-acetaminophen 5 mg-325 mg tablet (Percocet) 1 tab PO Q6H PRN pain 3 days #10 tabs 07/21/22 [Rx Last Taken Unknown] apixaban 5 mg (74 tabs) tablets in a dose pack (Eliquis DVT-PE Treat 30D Start) 5 mg PO BID #74 tabs 07/22/22 [Rx Last Taken Unknown] Allergy/AdvReac Type Severity Reaction Status Date / Time No Known Allergies Allergy Verified 07/22/22 11:22 Family History Mother COPD (chronic obstructive pulmonary disease) Surgical History No history of previous surgery Social History household members: significant other Smoking Status: Current every day smoker tobacco type: cigarettes how long ago did patient quit smoking: Patient w/ ongoing 1/2 ppd cigarette tobacco use since teen. alcohol intake: current alcohol intake frequency: a few times a month substance use type: does not use ROS ROS ED ROS Narrative Constitutional: No fever, no chills. HEENT: No sore throat. No neck pain. No loss of vision. No rhinorrhea. Cardiovascular: No chest pain. No palpitations. No pedal edema. Respiratory: No cough, no shortness of breath. Abdominal: No abdominal pain. No nausea. No vomiting. Genitourinary: No dysuria. No hematuria. Musculoskeletal: No myalgias. Left lower extremity pain, especially in the calf. Neurologic: No headaches. No dizziness. No lightheadedness. Skin: No rash. No change in color. Psychiatric: No depression. No anxiety. EXAM Physical Exam Narrative Exam Narrative: Afebrile. Vital signs noted. HEENT: Normocephalic. Atraumatic. PERRL, EOMI. Neck soft and supple. No point tenderness or step off. Cardiovascular: Regular rate and rhythm. No murmurs, rubs, or gallops appreciated. Respiratory: No tachypnea. Lungs clear to auscultation bilaterally. Gastrointestinal: Abdomen soft, nontender, with normoactive bowel sounds. No rebound or guarding. Neurological: Awake. Alert. Nonfocal, nonlateralizing. Skin: No rash. Normal color. No pallor. Musculoskeletal: No appreciated pedal edema. Full range of motion extremities. Mild tenderness left distal thigh and in left calf. No palpable cord. Const Vital Signs: 07/22/22 11:21 Temperature 97.9 F Temperature Source Temporal Pulse Rate 97 Respiratory Rate 18 Blood Pressure 122/68 H Blood Pressure Mean 86 Pulse Ox 95 Oxygen Delivery Method Room Air MDM MDM MDM Narrative Medical decision making narrative: I reviewed her EMR. Additionally, preliminary venous Doppler study accompanies the patient and there is acute deep venous thrombosis in the left distal femoral vein, popliteal vein, T/P trunk, gastrocnemius vein, PTV, peroneal and soleal veins. I discussed the use of anticoagulation with the patient. She was informed of the risk of spontaneous intracranial and GI hemorrhage and acknowledges an understanding. I do feel that the benefit of treating this DVT as there is a distal femoral vein DVT outweighs the low risk of catastrophic bleeding. She was given her first dose of Eliquis here, 10 mg orally in the emergency department and a prescription written for starter pack. She will follow-up with her primary care provider. Return instructions to the emergency department were reviewed. Disposition is discharged home in stable condition. Discharge Plan Triage Chief Complaint: Lower Extremity Injury ED Provider: Camilo Sutton Dx/Rx/DC Orders Clinical Impression: Pain of left calf, DVT (deep venous thrombosis) Instructions: ED Deep Vein Thrombosis (DVT) Prescriptions: New Maryjanequis DVT-PE Treat 30D Start 5 mg (74 tabs) tablets,dose pack 5 mg PO BID Qty: 74 0RF No Action doxycycline monohydrate 100 mg Capsule 100 mg PO BID Qty: 8 0RF albuterol sulfate 90 mcg/actuation HFA aerosol inhaler 2 puff inhalation Q6H PRN (Reason: shortness of breath or wheezing) Qty: 6.7 0RF prednisone 20 mg tablet 40 mg PO DAILY 5 Days Qty: 10 0RF ondansetron 4 mg tablet,disintegrating 4 mg PO Q8H PRN (Reason: nausea and vomiting) Qty: 10 0RF oxycodone-acetaminophen [Percocet] 5-325 mg tablet 1 tab PO Q6H PRN (Reason: pain) 3 Days Qty: 10 0RF Primary Care Provider: Jaxon Horvath Referrals: Jaxon Horvath MD [Primary Care Provider] - 5-7 Days Disposition Disposition: Home, Self Care Discharge Date/Time: 07/22/22 11:56
[2022-07-22] MEDS: APIXABAN 5 MG TABLET 10 MG PO (11:46)
== END 2022-07-22 11:56 | disposition home or self-care (01) ==
LOC: ED 11:55
PROVIDERS: Emergency Provider Emergency Medicine; PCP Family Medicine; Visit Provider Emergency Medicine
DX: I82.412 Acute embolism and thrombosis of left femoral vein (principal); J44.9 Chronic obstructive pulmonary disease, unspecified; F17.210 Nicotine dependence, cigarettes, uncomplicated
CPT/HCPCS: 93971; 99283

== ENCOUNTER → 2022-07-22 | Outpatient (CLI) | payer BC, SELFPAY ==
--- NOTE | 2022-07-22 10:53 | VDLE_ITS ---
Reason For Study: Pain RIGHT LEFT CFV is compressible, spontaneous, phasic, GSV is normal. competent and demonstrates normal CFV is compressible, spontaneous, phasic, augmentation. competent, and demonstrates normal Procedure augmentation. This is a venous duplex using B-mode, color FV prox-mid is compressible with normal flow and spectral Doppler. venous flow noted. Exam performed in department. Acute deep vein thrombosis is noted in the A preliminary report was called and/or faxed left FV distal, PopV, T/P Trunk, GastrocV, to PCP: Alexandru and ED staff. PTV, PeroV, and SoleusV. Patient seen in ED 07/21/22, scanned as next day ED exam. Patient taken ED for treatment. VL/Venous Duplex US, Unilateral Interpretation Summary Acute deep venous thrombosis distal left femoral and popliteal and tibioperonea l trunk and gastrocnemius and posterior tibial and peroneal and soleus veins Patent and compressible left great saphenous vein Normal flow patterns right common femoral vein Ordering Physician: Syed Barnard Referring Physician: Jaxon Horvath Performed By: Anna Marie Gould RVT
== END | disposition home or self-care (01) ==
PROVIDERS: PCP Family Medicine; Visit Provider Emergency Medicine
DX: I82.409 Acute embolism and thrombosis of unspecified deep veins of unspecified lower extremity (principal); M79.605 Pain in left leg
CPT/HCPCS: 93971

== ENCOUNTER → 2022-07-26 | Outpatient (CLI) | payer BC, SELFPAY ==
[2022-08-01 18:07] LABS: Dilute Prothrombin Time (dPT) 72.1 sec (0.0-47.6); Dilute Russell Viper Venom 168.6 sec (0.0-47.0); PTT-LA 45.3 sec (0.0-51.9); Protein C Antigen 105 % (60-150); Protein S, Free 129 % (61-136); Thrombin Time 17.5 sec (0.0-23.0); dPT Confirm Ratio 1.18 Ratio (0.00-1.34)
[2022-08-02 16:42] LABS: Protein S, Total 120 % (60-150)
[2022-08-02 16:43] LABS: Factor VIII Activity 119 % (56-140); Interpretation Comment: (.)
== END | disposition home or self-care (01) ==
PROVIDERS: PCP Family Medicine; Visit Provider Family Medicine
DX: I82.402 Acute embolism and thrombosis of unspecified deep veins of left lower extremity (principal)
CPT/HCPCS: 81240; 81241; 83090; 85240; 85300; 85302; 85303; 85305; 85306; 85307; 85420; 85613; 85705; 85732